=== PATIENT | female | born 1970 | race Caucasian/White ===

== ENCOUNTER → 2016-08-30 | Outpatient (CLI) | payer BC ==
--- NOTE | 2016-08-30 14:32 | XR ---
EXAMINATION TYPE: XR KUB DATE OF EXAM ORDERED: 08/30/2016 1:21 PM HISTORY: Renal calculi. COMPARISON: Previous study dated 09/01/2015. FINDINGS: There is a stable, 7.7 mm calculus overlying the mid polar region of the left kidney. A se cond stone seen previously is not identified on today's examination. No right-sided calculi are seen. There are stable phleboliths within the pelvis. IMPRESSION: 1. STABLE LEFT-SIDED RENAL CALCULUS. 2. REDUCED TOTAL STONE LOBE.
== END | disposition home or self-care (01) ==
LOC: RADXRMAIN 13:09
PROVIDERS: ATTEND Urology
DX: N20.0 Calculus of kidney (principal)
CPT/HCPCS: 74000

== ENCOUNTER → 2017-08-30 | Outpatient (CLI) | payer BC ==
--- NOTE | 2017-08-30 12:04 | XR ---
EXAMINATION TYPE: XR abdomen 1V DATE OF EXAM: 08/30/2017 10:27 AM CLINICAL HISTORY: Left ureter calculus TECHNIQUE: Two supine KUB images of the abdomen are obtained. COMPARISON: Abdominal x-ray from one year ago. FINDINGS: There is persistent 7 mm calculus lower pole level left kidney rounded densities in bilater al pelvis favor phleboliths, no significant change in size, location, or number since prior study. There is overall nonobstructive bowel gas pattern. Mild to moderate joint space loss in both hips is present. Lung bases are clear. IMPRESSION: Stable 7 mm lower pole left renal calculus. No new nephrolithiasis clearly seen.
== END | disposition home or self-care (01) ==
LOC: RADXRMAIN 10:10
PROVIDERS: ATTEND Urology
DX: N20.0 Calculus of kidney (principal)
CPT/HCPCS: 74018

== ENCOUNTER → 2017-11-24 | Outpatient (CLI) | payer BC ==
--- NOTE | 2017-11-24 12:23 | EST ---
EXERCISE STRESS DATE OF SERVICE: 11/24/2017 AGE: 47 SEX: F HT: 5'4" WT: 120. PROTOCOL: Nate Stress Test. STAGE: 3 DURATION OF EXERCISE: 7:00 HEART RATE REST: 87 BLOOD PRESSURE REST: 121/78 MAXIMUM HEART RATE ACHIEVED: 154 MAXIMUM BLOOD PRESSURE: 168/63 85% MPHR: 148 100% MPHR: 174 METS: 8.5 INDICATIONS: Chest pain. CLINICAL INFORMATION: STRESS DATA: Pretesting physical examination showed a heart rate of 87, pressure is 121/78 mmHg. Baseline EKG showed sinus mechanism. The patient exercised on the treadmill according to Nate protocol for a total of 7 minutes and achieved 8.5 METS. Max heart rate was 154, which is about 88% of maximum predicted heart rate. Maximum blood pressure was 168/63 mmHg. Clinically, no symptoms of chest pain or discomfort and the EKG did not show any significant changes concerning for ischemia. CONCLUSION: 1. Good exercise capacity. 2. Normal EKG in response to exercise. 3. Essentially normal stress test for the patient. MMODL / IJN: [id number] /
--- NOTE | 2017-11-24 12:30 | ECHOF ---
Referral Reason:R07.89 Other chest pain MEASUREMENTS -------- HEIGHT: 162.6 cm WEIGHT: 104.3 kg BP: IVSd: 0.9 cm (0.6 - 1.1) LVIDd: 3.7 cm (3.9 - 5.3) LVPWd: 1.0 cm (0.6 - 1.1) IVSs: 1.5 cm LVIDs: 2.7 cm LVPWs: 1.4 cm LAESV Index (A-L): 20.84 ml/m Ao Diam: 2.8 cm (2.0 - 3.7) AV Cusp: 2.1 cm (1.5 - 2.6) LA Diam: 3.8 cm (2.7 - 3.8) EPSS: 0.5 cm MV E Marcellus: 0.73 m/s MV DecT: 147 ms MV A Marcellus: 0.90 m/s MV E/A Ratio: 0.81 RAP: 5.00 mmHg RVSP: 21.01 mmHg MV EF SLOPE: 67.51 mm/s (70 - 150) MV EXCURSION: 1.04 cm (> 18.000) FINDINGS -------- Sinus rhythm. This was a technically good study. The left ventricular size is normal. Left ventricular wall thickness is normal. Overall left vent ricular systolic function is normal with, an EF between 55 - 60 %. The right ventricle is normal in size and function. The left atrium is normal in size. The right atrium is normal in size. The aortic valve is trileaflet, and appears structurally normal. No aortic stenosis or regurgitation. There is trace mitral regurgitation. Trace tricuspid regurgitation present. The right ventricular systolic pressure, as measured by Dopp ler, is 21.01mmHg. Pulmonic valve appears structurally normal. The aortic root size is normal. The pericardium is normal. CONCLUSIONS -------- 1. Sinus rhythm. 2. This was a technically good study. 3. The left ventricular size is normal. 4. Left ventricular wall thickness is normal. 5. Overall left ventricular systolic function is normal with, an EF between 55 - 60 %. 6. The right ventricle is normal in size and function. 7. The left atrium is normal in size. 8. The right atrium is normal in size. 9. The aortic valve is trileaflet, and appears structurally normal. No aortic stenosis or regurgitati on. 10. There is trace mitral regurgitation. 11. Trace tricuspid regurgitation present. 12. The right ventricular systolic pressure, as measured by Doppler, is 21.01mmHg. 13. Pulmonic valve appears structurally normal. 14. The aortic root size is normal. 15. The pericardium is normal. [employer] APPRENTICE: Lakisha Campbell RDCS
== END | disposition home or self-care (01) ==
LOC: RADNMMAIN 10:41
PROVIDERS: ATTEND Family Medicine
DX: R07.89 Other chest pain (principal)
CPT/HCPCS: 93017; 93306